=== PATIENT | male | born 1960 | race African-American/Black ===

== ENCOUNTER → 2023-03-14 13:35 | Outpatient (CLI) | payer MEDICARE, SELFPAY ==
--- NOTE | ~2023-03-14 | CT_ITS ---
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 TECHNIQUE: Computed tomography (CT) of the cervical spine was performed without intravenous contrast. Automated exposure control and iterative reconstruction technique were employed. The dose-length pro duct was 342.22 mGy-cm. COMPARISON: None FINDINGS: There is 2 mm retrolisthesis of C4 on C5. Vertebral body heights are normal. There is mildl y decreased disc height at C2-C3 and C3-C4, severely decreased disc height at C4-C5 and C5-C6, and mi ldly decreased disc height at C7-T1. C1 ring is ununited posteriorly, a normal variant. There is a la minectomy at C3. There are laminotomies from C4 to C6 with enlargement of the central spinal canal an d plate and screw fixation. Osseous central spinal canal is developmentally small at C6. The followin g disc levels are specifically discussed: C2-C3: There is mild right and severe left uncovertebral joint osteoarthritis. There is moderate bila teral facet joint osteoarthritis. There is mild bilateral neural foraminal stenosis. There is no cent ral canal stenosis. C3-C4: There is mild bilateral uncovertebral joint osteoarthritis. There is mild bilateral facet join t osteoarthritis. There is mild bilateral neural foraminal stenosis. There is mild central canal sten osis. C4-C5: There is severe right and moderate left uncovertebral joint osteoarthritis. There is severe ri ght and moderate left facet joint osteoarthritis. There is severe right and mild left neural foramina l stenosis. There is mild central canal stenosis with posterior decompression. C5-C6: There is severe bilateral uncovertebral joint osteoarthritis. There is moderate bilateral face t joint osteoarthritis. There is severe bilateral neural foraminal stenosis. There is mild central ca nal stenosis with posterior decompression. C6-C7: There is moderate bilateral uncovertebral joint osteoarthritis. There is mild right and modera te left facet joint osteoarthritis. There is mild bilateral neural foraminal stenosis. There is mild central canal stenosis. C7-T1: There is mild right and moderate left uncovertebral joint osteoarthritis. There is moderate bi lateral facet joint osteoarthritis. There is mild bilateral neural foraminal stenosis. There is no ce ntral canal stenosis. IMPRESSION: 1. Severe cervical spondylosis. Reviewed, dictated and finalized at location E. [employer]
--- NOTE | ~2023-03-14 | CT_ITS ---
EXAMINATION: CT thoracic spine wo con DATE: 03/14/2023 14:16 INDICATION: Thoracic spondylosis with cord compression. TECHNIQUE: Computed tomography (CT) of the thoracic spine was performed without intravenous contrast. Automated exposure control and iterative reconstruction technique were employed. The dose-length pro duct was 1086.34 mGy-cm. COMPARISON: Thoracic spine radiographs 10/22/2011 FINDINGS: Calcified right hilar and mediastinal lymph nodes are consistent with old granulomatous dis ease. There is 5 degrees levocurvature of lower thoracic spine. There is mild chronic anterior wedgin g of T7 and T8 vertebral bodies. There is mildly decreased disc height at most levels. There is sever christopher decreased disc height at T10-T11 and moderately decreased disc height at T11-T12. Osseous central spinal canal is developmentally small. There is multilevel mild to moderate facet joint osteoarthrit is. There is mild neural foraminal stenosis at many levels bilaterally. On the right, there is modera te neural foraminal stenosis from T6-T7 through T10-T11. On the left, there is moderate neural forami nal stenosis from T7-T8 through T10-T11. IMPRESSION: 1. Severe thoracic spondylosis. Reviewed, dictated and finalized at location E. [employer] ANALYST
== END ==
PROVIDERS: PCP Internal Medicine
DX: M47.812 Spondylosis without myelopathy or radiculopathy, cervical region (principal); M47.816 Spondylosis without myelopathy or radiculopathy, lumbar region
CPT/HCPCS: 72125; 72128